=== PATIENT | female | born 1950 | race Caucasian/White ===

== ENCOUNTER → 2018-11-08 12:54 | Outpatient (CLI) | payer MEDICARE, OTHER, SELFPAY ==
--- NOTE | 2018-11-08 12:58 | VDLE_ITS ---
Reason For Study: Venous insufficiency RIGHT LEFT CFV is compressible, spontaneous, phasic, CFV is compressible, spontaneous, phasic, competent and demonstrates normal competent, and demonstrates normal augmentation. augmentation. FV is compressible, spontaneous, phasic, FV is compressible, spontaneous, phasic, competent and demonstrates normal competent and demonstrates normal augmentation. augmentation. POP V is compressible, spontaneous, phasic, POP V is compressible, spontaneous, phasic, competent and demonstrates normal competent and demonstrates normal augmentation. augmentation. T/P Trunk is compressible. T/P Trunk is compressible. PTV is compressible. PTV is compressible. RT PerV is compressible. LT PerV is compressible. SFJ is INCOMPETENT with reflux greater SFJ is competent than .5 sec GSV is INCOMPETENT with reflux greater GSV is competent above knee than .5 sec and diameter of .34 x .34 cm GSV is INCOMPETENT below knee with reflux SSV is competent. greater than .5 sec and diameter of .38 x 35 cm SSV is competent INCOMPETENT bar catcher 7 cm prox to medial malleolus. Procedure Exam performed in department. Interpretation Summary Deep veins of the lower extremities are bilaterally patent and compressible segmentally. There is no evidence of deep vein thrombosis on either side. Valvular competence appears intact within the proximal deep venous systems bilaterally. The greater saphenous veins appear bilaterally patent and compressible segmentally. The right sapheno-femoral junction is incompetent . The left sapheno- femoral junction is competent . The right greater saphenous vein appears competent above the knee. The right greater saphenous vein appears incompetent below the knee. The left greater saphenous vein appears segmentally incompetent. Small saphenous veins are patent and competent bilaterally. An incompetent bar catcher vein is noted in the right calf, located 7 centimeters proximal to the right medial malleolus. Ordering Physician: Bharat Neal Referring Physician: Bharat Neal Performed By: Marleni Fernandez RVT
== END ==
PROVIDERS: Family Provider Internal Medicine; PCP Internal Medicine; Referring Provider Podiatrist; Visit Provider Podiatrist
DX: I87.2 Venous insufficiency (chronic) (peripheral) (principal); M19.90 Unspecified osteoarthritis, unspecified site; M25.571 Pain in right ankle and joints of right foot; S86.312D Strain of muscle(s) and tendon(s) of peroneal muscle group at lower leg level, left leg, subsequent encounter; Q68.8 Other specified congenital musculoskeletal deformities; M79.89 Other specified soft tissue disorders
CPT/HCPCS: 93970

== ENCOUNTER 2020-01-19 10:13 | Emergency (ER) | payer MEDICARE, OTHER, SELFPAY ==
[2020-01-19 10:16] VITALS: BP 158/59; PULSE 66; RESP 17; TEMP 37.1; O2SAT 96; BMI 39.6
--- NOTE | 2020-01-19 10:39 | VDLE_ITS ---
Reason For Study: pain Procedure LEFT Exam performed portable in ED. GSV is normal. The exam was abbreviated due to the COVID 19 CFV is compressible, spontaneous, phasic, protocol. competent, and demonstrates normal The exam was diagnostic. augmentation. A preliminary report was called and/or faxed FV is compressible, spontaneous, phasic, to Otis DIAZ. competent and demonstrates normal augmentation. POP V is compressible, spontaneous, phasic, competent and demonstrates normal augmentation. T/P Trunk is compressible. PTV is compressible. LT PerV is compressible. Interpretation Summary There is no evidence of left lower extremity deep vein thrombosis. Left great saphenous vein appears patent and compressible segmentally. Abbreviated Covid-19 protocol Ordering Physician: Joe Berg Performed By: Aníbal Rees RVT
--- NOTE | 2020-01-19 10:43 | ED.VIS.GEN ---
History of Present Illness Informant: Patient, Significant Other Onset: Month(s) - 1 month Context: Gradual Onset Timing: Continuous Quality: Aching pain Location: Left heel and left leg Current Severity: Moderate Maximum Severity: Moderate Worsened by: Movement and ambulation Relieved by: Nothing Associated Symptoms: Denies Narrative: 69-year-old female history of PE and DVT not currently anticoagulated presents with left heel and left leg pain that is been worsening for the last 1 week. She describes it as an aching pain. Denies trauma or injury denies recent travel or surgery. She has not had chest pain shortness of breath or hemoptysis. She is not on hormones. She has having trouble ambulating and has been using a walker due to the pain. Denies numbness tingling or weakness. Prior similar symptoms: Yes Recent Illness/Hospitalization: No <Joe Berg - Last Filed: 01/19/20 11:42> <Martín Salgado - Last Filed: 01/19/20 12:02> Chief Complaint: Lower Extremity Injury Past Medical History Prior records reviewed: Yes Past Medical History: - - Hypertension hyperlipidemia PE and DVT Surgical History: total knee arthroplasty Smoking Status: Never smoker Alcohol: None Drugs: None <Joe Berg - Last Filed: 01/19/20 11:42> <Martín Salgdao - Last Filed: 01/19/20 12:02> - Allergies and Home Meds Allergies/Adverse Reactions: Allergies heparin Allergy (Verified 01/19/20 10:16) HIT aspirin Adverse Reaction (Verified 01/19/20 10:42) Bleeding Causes ulcers and gi upset metoclopramide [From Reglan] Adverse Reaction (Verified 01/19/20 10:16) RESTLESS LEGS promethazine [From Phenergan] Adverse Reaction (Verified 01/19/20 10:16) RESTLESS LEGS Jvmkfhp-[id number]-Npp Reductase Inhibitor Adverse Reaction (Verified 01/19/20 10:16) BODYACHES Primary Care Physician: Peace Becker MD [Primary Care Provider] - Review of Systems All systems negative except as indicated General: Denies: Chills, Fever, Sweats Eyes: Denies: Visual changes - bilaterally, Diplopia ENT: Denies: Rhinorrhea, Sore throat Cardiovascular: Denies: Chest pain, Palpitations Respiratory: Denies: Dyspnea, Cough, Dyspnea on exertion Gastrointestinal: Denies: Abdominal pain, Nausea, Vomiting, Diarrhea, Melena, Hematochezia Genitourinary: Denies: Dysuria, Hematuria, Frequency Musculoskeletal: Reports: Swelling, Extremity Pain. Denies: Myalgias, Arthralgias, Neck pain, Back pain Skin: Denies: Rash, Wounds Neurological: Denies: Headache, Weakness, Numbness <Joe Berg - Last Filed: 01/19/20 11:42> Physical Exam Vital Signs/Narrative: Vital Signs Temp Pulse Resp BP Pulse Ox 01/19/20 10:16 98.7 F 66 17 158/59 H 96 Inital Vital Signs reviewed: Yes General: Well nourished, Well developed, No Acute Distress Head: Normocephalic, Atraumatic Eyes: Perrl, EOMI ENT: Moist mucous membranes, No rhinorrhea Neck: Supple, Nontender Cardiovascular: Regular rate, Regular rhythm, No murmurs Respiratory: No distress, CTA bilaterally, Chest nontender Abdomen: Soft, Nontender, Nondistended, Normal bowel sounds Back: Nontender, Normal Inspection Extremities: No edema, Tenderness, Calf Tenderness, - - Pain on palpation at the calcaneus and the distal left leg. There is no swelling or redness there are no palpable cords no signs of trauma compartments are soft. She is able to plantarflex and dorsiflex. DP and PT pulses are normal. Capillary refill and sensation all 5 toes is normal. She has normal active range of motion of her knee without pain and there is no swelling of her thigh or hip pain on palpation or thigh pain on palpation.. Negative for: Edema Skin: Normal color, No rash Neurological: Alert, Oriented x3, Cranial nerves II-XII grossly intact, Normal Strength, Normal Sensation Psychological: Normal affect, Normal Mood <Joe Berg - Last Filed: 01/19/20 11:42> Vital Signs/Narrative: Vital Signs Temp Pulse Resp BP Pulse Ox 01/19/20 10:16 98.7 F 66 17 158/59 H 96 <Martín Salgado - Last Filed: 01/19/20 12:02> Diagnostic/Tx/Re-eval - Medical Decision Making Patient's ultrasound left lower extremity was negative for DVT. Discussed with patient I feel her symptoms are likely due to plantar fasciitis and I discussed with her supportive care and exercises that she can do for this. I offered her a walking boot. She declines. She will use anti-inflammatories rest ice elevate and follow-up with her primary care physician or return for worsening symptoms which I discussed with her and her <Joe Berg - Last Filed: 01/19/20 11:42> - Medical Decision Making Patient was seen with me. I did a owms-ax-shji examination with the patient. Patient presents with pain in her left heel and leg. Patient states she has a history of blood clots and is concerned about this. Patient is not currently on any anticoagulants. Patient states her last DVT was 3 years ago but has been having some superficial thrombophlebitis. Patient states her pain is worse over her heel. Patient denies any trauma or injury. Patient denies any fevers or chills. Vital signs are stable. Patient is afebrile. Patient is in no acute distress. Musculoskeletal exam reveals tenderness over the plantar aspect of the left heel and plantar fascia especially at the insertion of the plantar fascia on the calcaneus. There is no edema or erythema. There is no ecchymosis. There is no bony crepitance or step-off. There is no calf tenderness. Pedal pulses are equal bilaterally. Sensation was intact to light touch bilaterally in the lower extremities. There is full range of motion. Venous duplex of the left lower extremity was obtained. There is no evidence of DVT. Patient was advised that this is most likely musculoskeletal, specifically plantar fasciitis. Patient was instructed to ice and elevate the left lower extremity. Patient was instructed to use ibuprofen as needed for pain. Patient was instructed to follow-up with her primary care physician in 5 to 7 days. Patient understood and was agreeable with the plan. All questions were answered. <Martín Salgado - Last Filed: 01/19/20 12:02> ED Disposition <Joe Berg - Last Filed: 01/19/20 11:42> <Martín Salgado - Last Filed: 01/19/20 12:02> - Plan for ED Patient: Disposition: Home or Assisted Living Diagnosis: Plantar fasciitis of left foot, History of DVT of lower extremity Instructions: ED Plantar Fasciitis Referrals: Peace Becker MD [Primary Care Provider] -
[2020-01-19 12:00] VITALS: RESP 18
== END 2020-01-19 12:00 | disposition home or self-care (01) ==
PROVIDERS: Emergency Provider Physician Assistant Medical; PCP Internal Medicine
DX: M72.2 Plantar fascial fibromatosis (principal); I10 Essential (primary) hypertension
CPT/HCPCS: 93971; 99282

== ENCOUNTER 2020-09-24 07:19 | Outpatient (RCR) | payer MEDICARE, OTHER, SELFPAY ==
[2020-09-24] MEDS: COVID-19 VACC, MRNA(PFIZER)/PF 30 MCG/0.3 ML SYRINGE IM (11:30)
[2020-10-15] MEDS: COVID-19 VACC, MRNA(PFIZER)/PF 30 MCG/0.3 ML SYRINGE IM (11:08)
== END 2020-09-24 23:59 ==
LOC: IMMUN 07:19
PROVIDERS: PCP Internal Medicine; Referring Provider Family Medicine; Visit Provider Family Medicine
DX: Z23 Encounter for immunization (principal)
CPT/HCPCS: 0001A; 0002A; 91300

== ENCOUNTER 2024-08-07 10:30 | Outpatient (RCR) | payer MEDICARE, OTHER, SELFPAY ==
--- NOTE | 2024-06-25 14:51 | HP.PTEVAL_ITS ---
Patient's Visit Information Visit Information Visit Information: AMALIA LOONEY is a 73 year old F referred to Physical Therapy by CHAITANYA CALLES with a diagnosis of IDDD, back pain(pt goal to walk better). Date of Evaluation: 06/25/24 Physical Therapist: Martín Wilson, DPT, OCS, CSCS Visit Plan Frequency: 2x /Week Duration: 4-6 Weeks Plan: 2x/week for 4-6 weeks IE: walk with walker 15 min daily at home treat with... 1. General ex standing to I home program. 2. FW weight shift ex to HEP 3. Gait training for confidence with weight shift, step length, narrow JAY and mobility. 4. Back ROM and core strength to HEP Subjective Subjective: I go to pain management and asked if she could come to help her walk. 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 Previous CATscan shows a stroke at some point that effected balance and coordination. Sees pain management for back pain with h/o two fusions, gets pain meds and patches. Takes oxycidine daily. LBP hurts to 5/10 daily with activitiy. Painfree at rest. Walking makes her worse longer distances. Uses cane for back pain and balance. Cannot lift heavier items. Car travel hurts, bending hurts. Balance and coordination is worse since recent brain surgery but has been a problem watermelon harvesting supervisor. Regular exercises. basic adls I with dressing, bathroom all I. Uses cane and walker all the time, walker helps with pain but avoids if can. Uses it to carry itemWithout AD can go short distances if holds or needs cart. Sleep is OK, on back. Not employed. Spends day doing housework dishes and laundry and cleaning and cooking, and they hurt back. Entertains. Gardens in summer and needs to sit on ground and balance and strength make getting up challenging Objective Objective: Walks with cane in R UE, slow, wide JAY, poor forward weight shift. Can walk much better with wh walker as far as step length goes. No AD requires slower movement and less confident. Trasnfer chair and table I without UE. Steps with one rail reciprocal I. LE AROM WFL, LB AROM WFL but pain with ext and flexion adn slow. HS 90/90 test is -20, other WFL. reflexes 2/3 patella and achilles Sensation LE WNL to gross light touch but obvious neuropathy in gait pattern and poor confidence with Fw weight shif tto front of foot with getting out of chair and walking. Balance/Special Test Scores Functional Gait Assessment Score: 23 % Disability: 23.3400 CATSIB Score (Max score 120 seconds): 120 Oswestry Low Back Score: 23 TUG Test Time Seconds: 14 30 Second Chair Rise Test Seconds: 13 Goals Goal 1:: 25/30 FGA to reduce fall risk Goal Time Frame: 4-6 Weeks Goal 2:: I appropriate HEP for general strength, FW weight shift, balance and confidence with gait. Goal Time Frame: 4-6 Weeks Goal 3:: 15 on 30 SSTS Goal Time Frame: 4-6 Weeks Goal 4:: Pt feel 75% more confident in gait Goal Time Frame: 4-6 Weeks Rehabilitation Potential Physical Therapy Diagnosis: weakness, poor weight shift limiting mobility. Rehabilitation Potential: Good Anticipated Interventions Patient/Client Instruction: Educate patient on: Condition and Risk Factors For the Purpose of:: To increase ROM, To improve nutrient delivery to tissue, To improve muscle performance and motor function, To increase tolerance to activity/condition/position and To improve gait and locomotor functions Therapeutic Exercise to Include: Strength training, Balance training, Postural training, Gait and locomotor training, Passive ROM, Active ROM and Dynamic Lumbar Stabilization For the Purpose of:: To decrease pain, To increase ROM, To improve nutrient delivery to tissue, To increase tolerance to activity/condition/position, To improve ability of physical actions for home/community/work/leisure and To improve gait and locomotor functions Text: Thank you for the opportunity to evaluate your patient. For Medicare and Medicare HMO plans, please review the plan of care and approve it. It will need to be FAXED BACK to us at [phone] for Medicare purposes. For Medicare only, by signing this I certify the plan of care. Please let me know if there are questions or concerns regarding this plan of care. Physician Signature: Date:
--- NOTE | 2024-07-29 09:29 | HP.PTREVAL_ITS ---
Re-Evaluation Intro: CHAITANYA CALLES, It has been my pleasure to treat AMALIA LOONEY over the last 5 visits for IDDD, back pain(pt goal to walk better). Please see the progress note below for an update on the physical therapy plan of care! Subjective Subjective: To neuro yesterday and that doctor wants more PT for balance/gait. Current therapy has helped. Using rlator now and feeling steady with that. I feel stronger going up and down steps. Schedule was so busy at [place] and could not get in for therapy as she was overwhelmed. Walks more with security of rollator. Walks in basement for 30 minnutes per day. Does steps daily to get down there suing railing. Back is hurting today maybe due to weather. Is slow with work at home but can do it. Objective Objective/Function: +2 on 30 SSTS FGA about the same Walking confidently with rollator, still lack s confidence and moves slow with poor weight shift without AD. goals still appropriate and new timeframe appropriate as pt missed last 2 weeks at [place]. Plan Plan Plan: 2x/week for anohter to mid August for 1. please get on HEP with pics for balance/wt hift and general strength to accompany her current walking. 2. Please work in therapy on funcitonal giat challenges for confidence. Balance/Gait/Functional tests Balance/Special Test Scores Functional Gait Assessment Score: 22 % Disability: 26.6700 CATSIB Score (Max score 120 seconds): 120 Oswestry Low Back Score: 18 TUG Test Time Seconds: 14 Tug Test: <20 sec.=mostly independent 30 Second Chair Rise Test Seconds: 15 Goals Goals Goal 1:: FGA to reduce fall risk Goal Time Frame: 4-6 Weeks Goal 2:: I appropriate HEP for general strength, FW weight shift, balance and confidence with gait. Goal Time Frame: 4-6 Weeks Goal Progress: walking, not HEP Goal 3:: 15 on 30 SSTS Goal Time Frame: 4-6 Weeks Goal 4:: Pt feel 75% more confident in gait Goal Time Frame: 4-6 Weeks Goal Progress: 35 Anticipated Interventions Anticipated Interventions Patient/Client Instruction: Educate patient on: Condition and Risk Factors For the Purpose of:: To increase ROM, To improve nutrient delivery to tissue, To improve muscle performance and motor function, To increase tolerance to activity/condition/position and To improve gait and locomotor functions Therapeutic Exercise to Include: Strength training, Balance training, Postural training, Gait and locomotor training, Passive ROM, Active ROM and Dynamic Lumbar Stabilization For the Purpose of:: To decrease pain, To increase ROM, To improve nutrient delivery to tissue, To increase tolerance to activity/condition/position, To improve ability of physical actions for home/community/work/leisure and To improve gait and locomotor functions Re-Evaluation Ending Re-evaluation ending: Please do not hesitate to contact me at [phone] by phone or if you have questions or concerns regarding this new plan of care! Sincerely, Martín Wilson, DPT, OCS, CSCS
--- NOTE | 2024-09-24 14:30 | HP.PT.NRP ---
Patient Information Patient Information: AMALIA LOONEY was seen in my office for initial evaluation on 06/25/24. The following Plan of Care was established for this patient: POC Established Initial Frequency: 2x /Week Initial Duration: 4-6 Weeks Anticipated Interventions Patient/Client Instruction: Educate patient on: Condition and Risk Factors For the Purpose of:: To increase ROM, To improve nutrient delivery to tissue, To improve muscle performance and motor function, To increase tolerance to activity/condition/position and To improve gait and locomotor functions Therapeutic Exercise to Include: Strength training, Balance training, Postural training, Gait and locomotor training, Passive ROM, Active ROM and Dynamic Lumbar Stabilization For the Purpose of:: To decrease pain, To increase ROM, To improve nutrient delivery to tissue, To increase tolerance to activity/condition/position, To improve ability of physical actions for home/community/work/leisure and To improve gait and locomotor functions Last Seen Last Seen: This patient was last seen in our office 08/07/24. Pertinent comments regarding their Physical therapy will appear below: Pt seen 7 visits of POC and was improving. She was to continue however, at this point she has not scheduled or attended any further visits. It has been over 6 weeks and I will discontinue her from my care At this point I will be discontinuing this patient from physical therapy. I would be happy to see this patient again in the future if found appropriate by the physician. Thank you! Martín Wilson, DPT, OCS, CSCS Balance/Gait/Functional tests Balance/Special Test Scores Functional Gait Assessment Score: 22 % Disability: 26.6700 CATSIB Score (Max score 120 seconds): 120 Oswestry Low Back Score: 18 TUG Test Time Seconds: 14 Tug Test: <20 sec.=mostly independent 30 Second Chair Rise Test Seconds: 15
== END 2024-08-07 19:00 | disposition home or self-care (01) ==
LOC: PT 10:30
PROVIDERS: PCP Internal Medicine
DX: M51.362 Other intervertebral disc degeneration, lumbar region with discogenic back pain and lower extremity pain (principal)
CPT/HCPCS: 97110; 97116; 97162; 97530